=== PATIENT | male | born 1950 | race Caucasian/White ===

== ENCOUNTER → 2024-09-27 | Outpatient (CLI) | payer MEDICARE ==
--- NOTE | 2024-09-27 15:40 | MR ---
EXAMINATION TYPE: MR lumbar spine wo con DATE OF EXAM: 09/27/2024 COMPARISON: NONE HISTORY: Back and Right leg pain x 6 Months, post Fall. Reticular atrophy. TECHNIQUE: Multiplanar, multisequence imaging of the lumbar spine is performed without IV contrast. FINDINGS: Sagittal images of the lumbar spine show vertebral body heights and alignment to appear sat isfactory. There is disc desiccation with moderate disc space narrowing and vacuum disc phenomenon at the L5-S1 level. Modic type II endplate changes at right L5-S1 level are identified The conus medull claudia is normal in position and signal ending mid L1 level. The bone marrow signal intensity is withi n normal limits. Axial images show T12-L1 through L2-L3 levels to appear within normal limits. Axial images at L3-L4 level shows mild to moderate facet arthropathy bilaterally. Spinal canal is pre served. Bilateral neural foramina are patent. Axial images at the L4-L5 levels and moderate to advanced facet arthropathy and ligamentum flavum hyp ertrophy effacing the posterior lateral thecal sac on the left. There is mild broad-based posterior d isc protrusion minimally effacing the anterior thecal sac. There is mild to moderate left greater carmencita n right bilateral neural foraminal narrowing. Axial images at the L5-S1 level show mild to moderate facet arthropathy bilaterally. There is broad d isc bulge with spinal canal is preserved and there is increased epidural fat. There is moderate to se keegan right and [id number] left-sided neural foraminal narrowing. Paraspinal muscle bulk is maintained. 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 [facility], , 09/27/2024 3:38 PM
== END | disposition home or self-care (01) ==
LOC: RADMRIMAIN 13:29
PROVIDERS: ATTEND Student in an Organized Health Care Education/Training Program
DX: M51.16 Intervertebral disc disorders with radiculopathy, lumbar region (principal); M47.26 Other spondylosis with radiculopathy, lumbar region
CPT/HCPCS: 72148